=== PATIENT | male | born 1990 | race Caucasian/White ===

== ENCOUNTER 2017-09-29 00:03 | Emergency (ER) | payer SELFPAY ==
[~2017-09-29] VITALS: Ht 190.5 cm; Wt 118.0 kg
[~2017-09-29 00:03] MED LIST: ASPI-516 CHEW; BACL10TA PO; BACT800T5 PO; CEPH500C3 PO; DOCU100C15 PO; ENOX40P SQ; GABA300C5 PO; HYDR-3583 PO; IBUP-232 PO; OXYC1TAB13 PO; PERC5TAB12 PO
[2017-09-29 00:14] VITALS: BP 158/72; PULSE 75; RESP 16; TEMP 97.5; O2SAT 98
[2017-09-29] MEDS ORDERED: CETI10TA71 PO (00:33)
[2017-09-29] MEDS ORDERED: IPRAAER INH (00:33)
[2017-09-29 00:34] VITALS: BP 141/75; PULSE 74; RESP 20; O2SAT 98
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
[2017-09-29] MEDS ORDERED: predniSONE 20 MG TAB PO ONE (00:45)
--- NOTE | 2017-09-29 01:24 | RADRPT ---
EXAM DATE/TIME: 09/29/2017 01:04 [place] COMPARISON: No previous studies available for comparison. INDICATIONS : Congestion. MEDICAL HISTORY : None. SURGICAL HISTORY : None. ENCOUNTER: Initial ACUITY: 1 week PAIN SCORE: 0/10 LOCATION: Bilateral chest FINDINGS: PA and lateral views of the chest demonstrate the lungs to be symmetrically aerated without evidence of mass, infiltrate or effusion. The cardiomediastinal contours are unremarkable. Osseous structure s are intact. CONCLUSION: Normal examination. Harrison Luis MD on September 29, 2017 at 1:22 Board Certified Radiologist. This report was verified electronically.
[2017-09-29] MEDS: RESP: ALBUTEROL 2.5 MG/IPRATROPIUM 0.5 MG NEB (SCH) INH (01:29)
[2017-09-29 01:30] VITALS: O2SAT 96
[2017-09-29 02:18] VITALS: BP 125/59; PULSE 79; RESP 20; O2SAT 95
[2017-09-29] MEDS ORDERED: PRED20 PO (03:10)
[2017-09-29] MEDS ORDERED: ALBUAER3 INH (03:10)
== END 2017-09-29 04:46 | disposition home or self-care (01) ==
LOC: NEPD 00:03
DX: J45.901 Unspecified asthma with (acute) exacerbation (principal); M54.9 Dorsalgia, unspecified; R07.9 Chest pain, unspecified; Z87.891 Personal history of nicotine dependence; Z79.899 Other long term (current) drug therapy
CPT/HCPCS: 71046; 94640; 94664; 99283; J7512